=== PATIENT | female | born 1985 | race Two or more races ===

== ENCOUNTER 2024-09-10 07:06 | Emergency (ER) | payer MEDICAID, OTHER ==
[~2024-09-10] VITALS: Ht 160 cm; Wt 92.3 kg
--- NOTE | 2024-09-10 08:17 | ED.PDOC ---
History of Present Illness HPI Comments 39 year old female presents to the ED with a chief complaint of facial swelling onset yesterday (09/09/24). Patient states she woke up yesterday experiencing facial swelling, believes it can be due to infected tooth. Patient noticed swelling slightly improved this morning but has not resolved. She also states she has not been taking her thyroid medication for the past year, noticed she gained 35 lbs in the past 3 months. Patient moved here about 1 year ago, has no PCP. PMHx thyroid. Denies chest pain, shortness of breath, dizziness, headache, nausea, vomiting, diarrhea, abdominal pain, fevers, chills. No other symptoms or modifying factors present at this time. Chief Complaint: Face pain Time Seen by MD: 08:25 Reviewed Notes: Medications, Allergies Allergies: Coded Allergies: NO KNOWN ALLERGIES (Unverified , 09/10/24) Information Source: Patient Mode of Arrival: Ambulatory Severity: Moderate Timing: Days Duration: Since onset Prehospital treatment: None Past Medical History PAST MEDICAL HISTORY: Thyroid Surgical History: Denies all surgeries TYING MACHINE OPERATOR History: No Pertinent TYING MACHINE OPERATOR History Family History Family History: Unknown Social History Smoker: Non-Smoker Alcohol: Denies ETOH Use Drugs: Denies Drug Use Lives In: Home Constitutional: denies: chills, diaphoresis, fatigue, fever, malaise, sweats, weakness, others EENTM: denies: blurred vision, double vision, ear bleeding, ear discharge, ear drainage, ear pain, ear ringing, eye pain, eye redness, hearing loss, mouth pain, mouth swelling, nasal discharge, nose bleeding, nose congestion, nose pain, photophobia, tearing, throat pain, throat swelling, voice changes, others Respiratory: denies: cough, hemoptysis, orthopnea, SOB at rest, shortness of breath, SOB with excertion, stridor, wheezing, others Cardiovascular: denies: chest pain, dizzy spells, diaphoresis, Dyspnea on exertion, edema, irregular heart beat, left arm pain, lightheadedness, palpitations, PND, syncope, others Gastrointestinal: denies: abdomen distended, abdominal pain, blood streaked bowels, constipated, diarrhea, dysphagia, difficulty swallowing, hematemesis, melena, nausea, poor appetite, poor fluid intake, rectal bleeding, rectal pain, vomiting, others Genitourinary: denies: abnormal vagina bleeding, burning, dyspareunia, dysuria, flank pain, frequency, hematuria, incontinence, pain, , vagina discharge, urgency, others Neurological: denies: dizziness, fainting, headache, left sided numbness, left sided weakness, numbness, paresthesia, pre-existing deficit, right sided n umbness, right sided weakness, seizure, speech problems, tingling, tremors, weakness, others Musculoskeletal: denies: back pain, gout, joint pain, joint swelling, muscle pain, muscle stiffness, neck pain, others Integumetry: reports: others (facial swelling); denies: bruises, change in color, change in hair/nails, dryness, laceration, lesions, lumps, rash, wounds Allergic/Immunocompromised: denies: Difficulty Healing, Frequent Infections, Hives, Itching, others Hematologic/Lymphatic: denies: anemia, blood clots, easy bleeding, easy bruising, swollen glands, others Endocrine: denies: excessive hunger, excessive sweating, excessive thirst, excessive urination, flushing, intolerance to cold, intolerance to heat, unexplained weight gain, unexplained weight loss, others Psychiatric: denies: anxiety, bipolar disorder, depression, hopeless, panic disorder, schizophrenia, sleepless, suicidal, others All Other Systems: Reviewed and Negative Physical Exam General Appearance: No Apparent Distress, Normal HEENT: Normal ENT Inspection, Pharynx Normal, TMs Normal Neck: Full Range of Motion, Non-Tender, Normal, Normal Inspection Respiratory: Chest Non-Tender, Lungs Clear, No Accessory Muscle Use, No Respiratory Distress, Normal Breath Sounds Cardiovascular: No Edema, No JVD, No Murmur, No Gallop, Normal Peripheral Pulses, Regular Rate/Rhythm Breast Exam: Deferred Gastrointestinal: No Organomegaly, Non Tender, No Pulsatile Mass, Normal Bowel Sounds, Soft Genitalia: Deferred Pelvic: Deferred Rectal: Deferred Extremities: No calf tenderness, Normal capillary refill, Normal inspection, Normal range of motion, Non-tender, No pedal edema Musculoskeletal : Apperance: Normal Neurologic: Alert, strategic partnership manager II-XII nml as Tested, No Motor Deficits, Normal Affect, Normal Mood, No Sensory Deficits Cerebellar Function: Normal Reflexes: Normal Skin: Dry, Normal Color, Warm Lymphatic: No Adenopathy Was a procedure done? Was a procedure done?: No Differential Dx Considerations may include: Dental infection, dental ezekiel X-Ray, Labs, Meds, VS Vital Signs Date Time Temp Pulse Resp B/P (MAP) Pulse Ox O2 Delivery O2 Flow Rate FiO2 09/10/24 08:24 98.0 78 14 114/65 (81) 99 98.0 09/10/24 08:24 Room Air* 0 21 09/10/24 07:37 97.6 102 18 145/87 (106) 98 Current Medications Medications (Trade) Dose Ordered Sig/Graciela Route Start Time Stop Time Status Last Admin Amoxicillin/ Clavulanate Potassium (Augmentin Tablet) 875 mg ONCE ONCE PO 09/10/24 08:15 09/10/24 08:16 DC 09/10/24 08:22 Levothyroxine Sodium (Synthroid Tablet) 25 mcg ONCE ONCE PO 09/10/24 08:15 09/10/24 08:16 DC 09/10/24 08:22 Time of 1ST Reevaluation: 08:55 Reevaluation 1ST: Unchanged Patient Education/Counseling: Diagnosis, Treatment, Prognosis Family Education/Counseling: No Family Present Departure 1 Departure Time of Disposition: 08:56 (Patient with facial swelling secondary to dental infection. We will discharge patient home with antibiotics and dental follow up.) Impression: Primary Impression: Dental infection Additional Impression: Medication refill Disposition: 01 HOME / SELF CARE / HOMELESS Condition: Stable Additional Instructions: You have a dental infection. It is important to follow up with a dentist. You were prescribed antibiotics. Please take as directed. Were also prescribed low dose of thyroid medication. You were referred to a primary care doctor. Please call for an appointment. For pain you can take the followinam: Ibuprofen 400mg with food Noon: Acetaminophen 1000mg 4pm: Ibuprofen 400mg with food 8pm: Acetaminophen 1000mg If your symptoms worsen or you have any other concerns then please return to the ER. e-Prescriptions Levothyroxine Sodium (Synthroid) 88 Mcg Tab 1 TAB PO DAILY for 30 Days, #30 TAB 5 Refills Prov: AMBER DOWLING MD 09/10/24 Amoxicillin & Pot Clavulanate (AUGMENTIN TABLET) 875 Mg Tb 875 MG PO BID for 7 Days, #14 TAB Prov: AMBER DOWLING MD 09/10/24 Discharged With: Self Critical Care Note Critical Care Time?: No Stability Stability form required: No I personally scribed for AMBER DOWLING MD ([email or web address]) on 09/10/24 at 08:17. Electronically submitted by Francheska Mayfield ([email or web address]). AMBER DOWLING MD Sep 10, 2024 08:17
[2024-09-10] MEDS: AMOXICILLIN/CLAVUL 875 MG TAB PO ONE (08:22)
[2024-09-10] MEDS: LEVOTHYROXINE SODIUM 25 MCG TAB PO ONE (08:22)
[2024-09-10 08:24] VITALS: BP 114/65; PULSE 78; RESP 14; TEMP 98; O2SAT 99
[2024-09-10] MEDS ORDERED: AUG875T PO (09:01)
[2024-09-10] MEDS ORDERED: LEVO88TA2 PO (09:01)
== END 2024-09-10 09:00 | disposition home or self-care (01) ==
LOC: ER 07:06
DX: K04.7 Periapical abscess without sinus (principal); Z76.0 Encounter for issue of repeat prescription

== ENCOUNTER 2024-10-04 17:49 | Emergency (ER) | payer MEDICAID ==
[~2024-10-04] VITALS: Ht 160 cm; Wt 92.4 kg
[~2024-10-04 17:49] MED LIST: AUG875T PO; LEVO88TA2 PO
[2024-10-04] MEDS ORDERED: AUG875T PO (18:21)
--- NOTE | 2024-10-04 18:21 | ED.PDOC ---
History of Present Illness HPI Comments 39-year-old female with PMHx Thyroid Disease presents with a chief complaint of mouth pain, mouth swelling, and eye pain x 1 day. Patient states that starting yesterday her mouth began to swell where she has an abscess or infected tooth on the right side of her upper mouth. Patient mentions that the swelling started progressing and now is covering her lower eyelid. Patient mentions that the pain is worse to her eye than to her mouth. Patient denies any vision changes. No other symptoms or modifying factors present at this time. Chief Complaint: Face pain Time Seen by MD: 18:15 Reviewed Notes: Medications, Allergies Allergies: Coded Allergies: NO KNOWN ALLERGIES (Unverified , 09/10/24) Home Meds Active Scripts Amoxicillin & Pot Clavulanate (AUGMENTIN TABLET) 875 Mg Tb, 875 MG PO BID for 14 Days, #28 TAB Prov:NICOLÁS VICENTE MD 10/04/24 Levothyroxine Sodium (Synthroid) 88 Mcg Tab, 1 TAB PO DAILY for 30 Days, #30 TAB 5 Refills Prov:AMBER DOWLING MD 09/10/24 Amoxicillin & Pot Clavulanate (AUGMENTIN TABLET) 875 Mg Tb, 875 MG PO BID for 7 Days, #14 TAB Prov:AMBER DOWLING MD 09/10/24 Information Source: Patient Mode of Arrival: Ambulatory Severity: Moderate Timing: Days Duration: Since onset Prehospital treatment: None Past Medical History PAST MEDICAL HISTORY: Thyroid Surgical History: Denies all surgeries BELT KNIFE FEEDER History: No Pertinent BELT KNIFE FEEDER History Family History Family History: Unknown Social History Smoker: Non-Smoker Alcohol: Denies ETOH Use Drugs: Denies Drug Use Lives In: Homeless Constitutional: denies: chills, diaphoresis, fatigue, fever, malaise, sweats, weakness, others EENTM: reports: eye pain, mouth pain, mouth swelling; denies: blurred vision, double vision, ear bleeding, ear discharge, ear drainage, ear pain, ear ringing, eye redness, hearing loss, nasal discharge, nose bleeding, nose congestion, nose pain, photophobia, tearing, throat pain, throat swelling, voice changes, others Respiratory: denies: cough, hemoptysis, orthopnea, SOB at rest, shortness of breath, SOB with excertion, stridor, wheezing, others Cardiovascular: denies: chest pain, dizzy spells, diaphoresis, Dyspnea on exertion, edema, irregular heart beat, left arm pain, lightheadedness, palpitations, PND, syncope, others Gastrointestinal: denies: abdomen distended, abdominal pain, blood streaked bowels, constipated, diarrhea, dysphagia, difficulty swallowing, hematemesis, melena, nausea, poor appetite, poor fluid intake, rectal bleeding, rectal pain, vomiting, others Genitourinary: denies: abnormal vagina bleeding, burning, dyspareunia, dysuria, flank pain, frequency, hematuria, incontinence, pain, , vagina discharge, urgency, others Neurological: denies: dizziness, fainting, headache, left sided numbness, left sided weakness, numbness, paresthesia, pre-existing deficit, right sided numbness, right sided weakness, seizure, speech problems, tingling, tremors, weakness, others Musculoskeletal: denies: back pain, gout, joint pain, joint swelling, muscle pain, muscle stiffness, neck pain, others Integumetry: denies: bruises, change in color, change in hair/nails, dryness, laceration, lesions, lumps, rash, wounds, others Allergic/Immunocompromised: denies: Difficulty Healing, Frequent Infections, Hives, Itching, others Hematologic/Lymphatic: denies: anemia, blood clots, easy bleeding, easy bruising, swollen glands, others Endocrine: denies: excessive hunger, excessive sweating, excessive thirst, excessive urination, flushing, intolerance to cold, intolerance to heat, unexplained weight gain, unexplained weight loss, others Psychiatric: denies: anxiety, bipolar disorder, depression, hopeless, panic disorder, schizophrenia, sleepless, suicidal, others All Other Systems: Reviewed and Negative Physical Exam General Appearance: No Apparent Distress, Normal HEENT: Normal ENT Inspection, Pharynx Normal, TMs Normal Neck: Full Range of Motion, Non-Tender, Normal, Normal Inspection Respiratory: Chest Non-Tender, Lungs Clear, No Accessory Muscle Use, No Respiratory Distress, Normal Breath Sounds Cardiovascular: No Edema, No JVD, No Murmur, No Gallop, Normal Peripheral Pulses, Regular Rate/Rhythm Breast Exam: Deferred Gastrointestinal: No Organomegaly, Non Tender, No Pulsatile Mass, Normal Bowel Sounds, Soft Genitalia: Deferred Pelvic: Deferred Rectal: Deferred Extremities: No calf tenderness, Normal capillary refill, Normal inspection, Normal range of motion, Non-tender, No pedal edema Musculoskeletal : Apperance: Normal Neurologic: Alert, cotton ball machine tender II-XII nml as Tested, No Motor Deficits, Normal Affect, Normal Mood, No Sensory Deficits Cerebellar Function: Normal Reflexes: Normal Skin: Dry, Normal Color, Warm Lymphatic: No Adenopathy Was a procedure done? Was a procedure done?: No Differential Dx Considerations may include: Differential diagnosis includes but not limited to: dental abscess, Andrews's angina, osteomyelitis, orbital cellulitis, deep tissue involvement, sepsis and others X-Ray, Labs, Meds, VS Vital Signs Date Time Temp Pulse Resp B/P (MAP) Pulse Ox O2 Delivery O2 Flow Rate FiO2 10/04/24 18:04 98.3 101 19 126/68 (87) 99 98.3 Time of 1ST Reevaluation: 18:45 Reevaluation 1ST: Unchanged Patient Education/Counseling: Diagnosis, Treatment, Prognosis Family Education/Counseling: No Family Present Departure 1 Departure Time of Disposition: 18:27 Impression: Primary Impression: Dental abscess Additional Impressions: Dental infection Facial cellulitis Disposition: 01 HOME / SELF CARE / HOMELESS Condition: Stable e-Prescriptions Amoxicillin & Pot Clavulanate (AUGMENTIN TABLET) 875 Mg Tb 875 MG PO BID for 14 Days, #28 TAB Prov: NICOLÁS VICENTE MD 10/04/24 Discharged With: Self Critical Care Note Critical Care Time?: No Stability Stability form required: No Heart Score Heart Score: Heart Score Response (Comments) Value History N/A 0 EKG N/A 0 Age N/A 0 Risk Factors N/A 0 Troponin N/A 0 Total 0 I personally scribed for NICOLÁS VICENTE MD ([email or web address]) on 10/04/24 at 18:21. Electronically submitted by Diaz Burk ([email or web address]). NICOLÁS VICENTE MD Oct 04, 2024 18:21
[2024-10-04] MEDS: HYDROcodone-ACET 5/325MG TAB PO ONE ×2 (19:53→20:01)
[2024-10-04] MEDS: AMOXICILLIN/CLAVUL 875 MG TAB PO ONE (19:53)
[2024-10-04 19:54] VITALS: BP 152/75; TEMP 98.2
[2024-10-04 19:56] VITALS: PULSE 94; RESP 16; O2SAT 99
== END 2024-10-04 20:05 | disposition home or self-care (01) ==
LOC: ER 17:51
DX: K04.7 Periapical abscess without sinus (principal); L03.211 Cellulitis of face; E03.9 Hypothyroidism, unspecified